=== PATIENT | male | born 1955 ===

== ENCOUNTER 2016-10-26 18:12 | Emergency (ER) | payer SELFPAY ==
[2016-10-26 18:21] VITALS: RESP 16
--- NOTE | 2016-10-26 18:54 | ED PDOC ---
Lower Extremity Pain/Injury Time Seen by Provider: 10/26/16 18:40 Chief Complaint (Nursing): Lower Extremity Problem/Injury History Per: Patient History/Exam Limitations: no limitations Onset/Duration Of Symptoms: Days (14) Current Symptoms Are (Timing): Still Present Additional Complaint(s): 61 year old male with PMH of DM presents to ED for evaluation of right foot swelling for few days and gradually worsening. Patient reports having mild pain 3/10 to foot and open wounds to the foot for about 3 weeks. He was seen by his dimension mill worker Dr Arjun Rascon and given antibiotics. He completed 10 day course of Keflex 500mg. Denies fever, drainage, SOB. Patient is visiting from [place]. Past Medical History Reviewed: Historical Data, Nursing Documentation, Vital Signs Vital Signs: Last Vital Signs Temp 98.1 F 10/26/16 18:15 Pulse 97 H 10/26/16 18:15 Resp 16 10/26/16 18:15 BP 143/89 10/26/16 18:15 Pulse Ox 100 10/26/16 18:15 - Medical History PMH: Diabetes - Family History Family History: States: Unknown Family Hx - Allergies Allergies/Adverse Reactions: Allergies Allergy/AdvReac Type Severity Reaction Status Date / Time No Known Allergies Allergy Verified 10/26/16 18:15 Review of Systems Constitutional: Negative for: Fever, Weakness, Malaise Cardiovascular: Negative for: Chest Pain, Palpitations Respiratory: Negative for: Cough, Shortness of Breath Gastrointestinal: Negative for: Abdominal Pain Musculoskeletal: Positive for: Foot Pain Skin: Positive for: Other (ulcer to foot) Neurological: Negative for: Headache, Dizziness Physical Exam - Reviewed Nursing Documentation Reviewed: Yes Vital Signs Reviewed: Yes - Physical Exam Appears: Positive for: Non-toxic, No Acute Distress Head Exam: Positive for: ATRAUMATIC, NORMAL INSPECTION, NORMOCEPHALIC Skin: Positive for: Warm, Dry. Negative for: Pallor Eye Exam: Positive for: Normal appearance Neck: Positive for: Painless ROM Cardiovascular/Chest: Positive for: Regular Rate, Rhythm Respiratory: Positive for: Normal Breath Sounds. Negative for: Wheezing, Respiratory Distress Gastrointestinal/Abdominal: Positive for: Soft, Other (obese) Extremity: Positive for: Normal ROM, Other (Moderate swelling and erythema to right foot extending right above ankle. Right foot with second digit amputation. 2 superficial ulcers to plantar foot near great toe, no discharge or foul odor. ) Neurologic/Psych: Positive for: Alert, Oriented - Laboratory Results Result Diagrams: 10/26/16 19:06 10/26/16 19:06 - ECG O2 Sat by Pulse Oximetry: 100 (room air) Pulse Ox Interpretation: Normal Medical Decision Making Medical Decision Making: Impression: Foot pain and ulcers Prior records reviewed: none available for review Plan: * Labs * foot xray * venous doppler * podiatry consult Progress: 1852 Page and speak with podiatry resident who come to evaluate patient 1947 Podiatry resident Dana Yang at bedside to evaluate patient, requesting xrays 1958 Venous doppler negative for DVT. XRay reviewed by me showing no degenerative disease, no signs of osteomyelitis. Disposition - Clinical Impression Clinical Impression: Diabetic foot ulcer Counseled Patient/Family Regarding: Diagnosis, Need For Followup - Disposition Disposition: Routine/Home Disposition Time: 20:00 Condition: STABLE Forms: [employer] (Swedish) Patient Signed Over To: Neva Villanueva Handoff Comments: pending xray, podiatry consult and dispo - POA Present On Arrival: Poor Glycemic Control
[2016-10-26 19:13] LABS: BASO # 0.1 K/uL (0.0-0.2); BASO % 0.7 % (0.0-2.0); EOS # 0.4 K/uL (0.0-0.7); EOS % 4.4 % (0.0-4.0); HEMATOCRIT 35.4 % (35.0-51.0); LYMPH # 1.9 K/uL (1.0-4.3); LYMPH % 20.7 % (20.0-40.0); MEAN CELL VOLUME 86.7 fl (80.0-94.0); MEAN CORPUSCULAR HEMOGLOBIN 28.5 pg (27.0-31.0); MEAN CORPUSCULAR HGB CONC 32.9 g/dL (33.0-37.0); MEAN PLATELET VOLUME 8.9 fl (7.2-11.7); MONO # 0.9 K/uL (0.0-0.8); MONO % 10.1 % (0.0-10.0); NEUT # 5.9 K/uL (1.8-7.0); NEUT % 64.1 % (50.0-75.0); NRBC % 0.1 % (0.0-0.0); RED CELL DISTRIBUTION WIDTH 13.7 % (11.5-14.5); WHITE BLOOD COUNT 9.2 K/uL (4.8-10.8)
[2016-10-26 19:27] LABS: ALB/GLOB RATIO 1.1 (1.0-2.1); ALKALINE PHOSPHATASE 83 U/L (38-126); ALT/SGPT 27 U/L (21-72); AST/SGOT 23 U/L (17-59); BILIRUBIN,TOTAL 0.5 mg/dl (0.2-1.3); BLOOD UREA NITROGEN 13 mg/dl (9-20); CALCIUM 9.4 mg/dL (8.4-10.2); CARBON DIOXIDE 28 mmol/L (22-30); CHLORIDE 102 mmol/L (98-107); GFR AFRICAN-AMERICAN > 60; GLUCOSE,RANDOM 134 mg/dL (75-110); POTASSIUM 4.4 MMOL/L (3.6-5.0); SODIUM 140 mmol/l (132-148); TOTAL PROTEIN 7.9 G/DL (6.3-8.2)
[2016-10-26] MEDS ORDERED: Sodium Chloride 0.9% 1,000 ML IV STA (19:33)
--- NOTE | 2016-10-26 19:55 | CP.PCM.CON ---
History of Present Illness - History of Present Illness History of Present Illness: 61 y/o male with PMHx of diabetes type II seen in the ED by podiatry for right foot swelling with minor pain. Patient has had 3 small ulcers on his foot present for approx 3 months duration and follows up regularly with a fiction and nonfiction writer prose Dr. Rascon near his home in [place]. 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 Patient recently completed a 10 day course of Keflex four days ago but has not seen any improvements in his leg or foot swelling. Patient admits to intermittent shooting pains to the foot which he has had for several months. Patient denies tingling, burning or numbness, but admits to a history of this in his feet. Patient denies F/C/N/V/SOB. Review of Systems - Review of Systems All systems: reviewed and no additional remarkable complaints except (per HPI) Past Patient History - Past Social History Smoking Status: Never Smoked - ENDOCRINE/METABOLIC Hx Diabetes Mellitus Type 2: Yes - PSYCHIATRIC Hx Substance Use: No - SURGICAL HISTORY Hx Amputation: Yes (right 2nd toe last year) Meds Home Medications: Home Medication List Medication Instructions Recorded Confirmed Type Amoxicillin/Clavulanate [Augmentin 1 tab PO Q12 #13 tab 10/26/16 Rx 875 MG-125 MG] Allergies/Adverse Reactions: Allergies Allergy/AdvReac Type Severity Reaction Status Date / Time No Known Allergies Allergy Verified 10/26/16 18:15 - Medications Medications: Current Medications Sodium Chloride (Sodium Chloride 0.9%) 1,000 mls @ 1,000 mls/hr IV .Q1H STA Stop: 10/26/16 20:32 Last Admin: 10/26/16 19:46 Dose: 1,000 mls/hr Physical Exam - Constitutional Appears: Well, Non-toxic, No Acute Distress - Extremities Exam Additional comments: Vasc: DP/PT pulses 2/4 B/L. Temperature gradient warm to cool B/L. +2 pitting edema noted to perimalleolar region and dorsum of foot on R, no edema noted to LLE. CFT < 3 sec to all digits. Derm: Superficial ulcerations with fibrogranular bases noted to medial aspect of R hallux, sub met head 3 and sub met shaft 5. R medial hallux ulcer measures 0.5cm x 0.5cm x 0.1cm. Sub met 3 ulcer measures 0.6cm x 0.6cm x 0.1cm. Sub met shaft 5 ulcer measures 1.4cm x 0.9cm x 0.1cm. All three ulcerations contain hyperkeratotic borders with stable fibrogranular bases. No drainage, no malodor , no surrounding erythema, no cellulitic changes, no tunneling, no probe to bone. Neuro: Protective sensation grossly diminished on R, grossly intact on L Ortho: No pain on palpation of R foot at ulceration sites - Neurological Exam Neurological exam: Alert, Oriented x3 - Psychiatric Exam Psychiatric exam: Normal Affect, Normal Mood Results - Vital Signs Recent Vital Signs: Last Vital Signs Temp 98.1 F 10/26/16 18:15 Pulse 97 H 10/26/16 18:15 Resp 16 10/26/16 18:15 BP 143/89 10/26/16 18:15 Pulse Ox 100 10/26/16 19:50 - Labs Result Diagrams: 10/26/16 19:06 10/26/16 19:06 Labs: Laboratory Results - last 24 hr 10/26/16 10/26/16 19:06 19:06 WBC 9.2 RBC 4.08 L Hgb 11.7 L Hct 35.4 MCV 86.7 MCH 28.5 MCHC 32.9 L RDW 13.7 Plt Count 287 MPV 8.9 Neut % (Auto) 64.1 Lymph % (Auto) 20.7 Morrison % (Auto) 10.1 H Eos % (Auto) 4.4 H Baso % (Auto) 0.7 Neut # 5.9 Lymph # 1.9 Morrison # 0.9 H Eos # 0.4 Baso # 0.1 Sodium 140 Potassium 4.4 Chloride 102 Carbon Dioxide 28 Anion Gap 14 BUN 13 Creatinine 1.0 Est GFR ( Amer) > 60 Est GFR (Non-Af Amer) > 60 Random Glucose 134 H Calcium 9.4 Total Bilirubin 0.5 AST 23 ALT 27 Alkaline Phosphatase 83 Total Protein 7.9 Albumin 4.2 Globulin 3.7 Albumin/Globulin Ratio 1.1 Assessment & Plan - Assessment and Plan (Free Text) Assessment: 61 y/o male with superficial ulcerations to R foot with RLE edema secondary to DM with neuropathy Plan: Pt seen in ED by podiatry Discussed plan in detail with attending Dr. Saucedo Chart, labs and vitals reviewed - afebrile WBC 9.2 X-rays of R foot reveal no erosive changes, no cortical disruption, hx of amputations to R 2nd digit and 5th metatarsal head Aseptic excisional debridement of superficial ulcerations on R medial hallux, R sub met 3 and R sub met shaft 5 with sterile #10 blade down to subcutaneous tissue with removal of hyperkeratotic tissue and activation of healthy bleeding tissue Pt tolerated procedure without incident Applied Betadine and DSD to R foot Pt dispensed Augmentin x7d by ED Pt recommended to follow up within one week with his fiction and nonfiction writer prose once he returns home to [place] Pt recommended to monitor foot for signs of infection such as redness to the foot or drainage from his wounds Thank you for this consult
--- NOTE | 2016-10-26 19:55 | US ---
EXAM: US Duplex Right Lower Extremity Veins EXAM DATE/TIME: 10/26/2016 6:50 PM CLINICAL HISTORY: 61 years old, male; Pain; Leg, lower; Right; Additional info: Swelling redness pain to foot and calf TECHNIQUE: Real-time ultrasound scan of the veins of the right lower extremity with color Doppler flow, spectral waveform analysis and compression. COMPARISON: There are no prior studies for comparison. FINDINGS: Deep veins: Common femoral, superficial femoral, popliteal and posterior tibial veins were evaluated. All veins examined are compressible. There are no intraluminal filling defects. There is expected blood flow on Doppler imaging. There is change in waveform with augmentation. Soft tissues: There is edema at the right ankle IMPRESSION: No deep venous thrombosis in the visualized vascular segments of the lower extremity
[2016-10-26] MEDS ORDERED: Povidone Iodine Oint 10% Foilpak UD ONE (20:12)
--- NOTE | 2016-10-26 20:14 | ED PDOC ---
- Laboratory Results Result Diagrams: 10/26/16 19:06 10/26/16 19:06 - ECG O2 Sat by Pulse Oximetry: 100 (room air) - Progress ED Course And Treament: case endorsed to technical proposal writer from [facility] pending podiatry consult Patient evaluated by podiatry resident on-call (see consult note) Recommends Augmentin and follow up with clinical nursing manager upon returning to [place]. Disposition - Clinical Impression Clinical Impression: Diabetic foot ulcer - POA Present On Arrival: None - Disposition Disposition: Routine/Home Disposition Time: 21:05 Condition: STABLE Additional Instructions: Follow up with you Handle Sander Operator upon returning home. Take medication as directed. Return to ED for worsening/concerning symptoms. Prescriptions: Amoxicillin/Clavulanate [Augmentin 875 MG-125 MG] 1 tab PO Q12 #13 tab Instructions: Diabetic Foot Care (ED), Diabetic Foot Ulcers (ED)
[2016-10-26] MEDS ORDERED: Amoxicillin-Clav 875-125 mg Tab PO STA (20:15)
[2016-10-26] MEDS ORDERED: Amoxicillin-Clav 875-125 mg Tab PO ONE (21:30)
[2016-10-26 21:40] VITALS: BP 133/69; PULSE 79; TEMP 97.9; O2SAT 99
--- NOTE | 2016-10-27 10:50 | RAD ---
PROCEDURE: Right Foot Radiographs. HISTORY: swelling, pain, ulcers COMPARISON: None. FINDINGS: BONES: Prior amputation of the 2nd digit appreciated with a deform the distal portion of the 2nd metatarsal bone. Prior amputation of the distal 5th metatarsal bone is also appreciated. Vascular calcifications is are appreciated throughout the foot soft tissues dorsally as well as at the plantar regions with prominent soft tissue edema is seen at the forefoot and midfoot dorsally and at the plantar distribution. Anterior ankle soft tissue edema is suggested as well. No definitive suspicious focal lytic or blastic change. MRI should be considered if there is concern for osteomyelitis. JOINTS: Degenerate joint changes seen throughout the it remaining interphalangeal joints diffusely as well as the 1st metatarsophalangeal joint and midfoot joints. SOFT TISSUES: As above. No emphysematous soft tissue changes noted however. OTHER FINDINGS: None. IMPRESSION: Predominately forefoot and midfoot soft tissue edema is appreciate well as anterior to the ankle. Prior amputation 2nd digit and distal portion right 5th metatarsal bone noted. No focal lytic or blastic change. Osteomyelitis is quite as clinically suspected then follow-up MRI is advised. Degenerate changes as per above.
== END 2016-10-26 21:52 | disposition home or self-care (01) ==
LOC: H.ER 18:12
DX: E11.621 Type 2 diabetes mellitus with foot ulcer (principal)
CPT/HCPCS: 73630; 80053; 85025; 93971; 96360; 99284; J7040

== ENCOUNTER 2016-11-19 13:46 | Emergency (ER) | payer SELFPAY ==
[2016-11-19 13:52] VITALS: BP 164/83; PULSE 86; RESP 18; TEMP 98.2; O2SAT 100
[2016-11-19 14:26] LABS: BASO # 0.1 K/uL (0.0-0.2); BASO % 0.8 % (0.0-2.0); EOS # 0.2 K/uL (0.0-0.7); EOS % 3.4 % (0.0-4.0); HEMATOCRIT 34.4 % (35.0-51.0); LYMPH # 1.9 K/uL (1.0-4.3); LYMPH % 26.5 % (20.0-40.0); MEAN CELL VOLUME 85.6 fl (80.0-94.0); MEAN CORPUSCULAR HEMOGLOBIN 28.6 pg (27.0-31.0); MEAN CORPUSCULAR HGB CONC 33.4 g/dL (33.0-37.0); MEAN PLATELET VOLUME 8.8 fl (7.2-11.7); MONO # 0.9 K/uL (0.0-0.8); MONO % 12.1 % (0.0-10.0); NEUT # 4.2 K/uL (1.8-7.0); NEUT % 57.2 % (50.0-75.0); NRBC % 0.1 % (0.0-0.0); RED CELL DISTRIBUTION WIDTH 13.7 % (11.5-14.5); WHITE BLOOD COUNT 7.3 K/uL (4.8-10.8)
[2016-11-19 14:31] LABS: VENOUS BLOOD GAS BASE EXCESS 4.2 mmol/L (0.0-2.0); VENOUS BLOOD GAS PCO2 40 mmHg (40-60); VENOUS BLOOD PH 7.46 (7.32-7.43)
[2016-11-19 14:35] LABS: BLOOD UREA NITROGEN 24 mg/dl (9-20); CALCIUM 9.2 mg/dL (8.4-10.2); CARBON DIOXIDE 24 mmol/L (22-30); CHLORIDE 105 mmol/L (98-107); GFR AFRICAN-AMERICAN > 60; GLUCOSE,RANDOM 168 mg/dL (75-110); POTASSIUM 4.9 MMOL/L (3.6-5.0); SODIUM 143 mmol/l (132-148)
--- NOTE | 2016-11-19 16:13 | ED PDOC ---
Lower Extremity Pain/Injury Time Seen by Provider: 11/19/16 14:00 Chief Complaint (Nursing): Lower Extremity Problem/Injury Chief Complaint (Provider): foot pain History Per: Patient (61 y/o male h/o DM here with slowly worsening ulcers of right foot notes moderate pain today. Denies any fevers/chills. Has a primary finance broker in [place] who he last followed with 2 weeks ago for debridement. Recently finished antibiotics.) Past Medical History Reviewed: Historical Data, Nursing Documentation, Vital Signs Vital Signs: Last Vital Signs Temp 98.2 F 11/19/16 13:47 Pulse 86 11/19/16 13:47 Resp 18 11/19/16 13:47 BP 164/83 H 11/19/16 13:47 Pulse Ox 100 11/19/16 13:47 - Medical History PMH: Diabetes, HTN - Family History Family History: States: Unknown Family Hx - Home Medications Home Medications: Ambulatory Orders Medication Instructions Recorded Amoxicillin/Clavulanate [Augmentin 1 tab PO Q12 #13 tab 10/26/16 875 MG-125 MG] Cephalexin [Keflex] 500 mg PO QID #28 capsule 11/19/16 - Allergies Allergies/Adverse Reactions: Allergies Allergy/AdvReac Type Severity Reaction Status Date / Time No Known Allergies Allergy Verified 10/26/16 18:15 Review of Systems ROS Statement: Except As Marked, All Systems Reviewed And Found Negative Musculoskeletal: Positive for: Foot Pain Physical Exam - Reviewed Nursing Documentation Reviewed: Yes Vital Signs Reviewed: Yes - Physical Exam Appears: Positive for: Well, Non-toxic, No Acute Distress Head Exam: Positive for: ATRAUMATIC, NORMAL INSPECTION, NORMOCEPHALIC Skin: Positive for: Normal Color, Warm, DRY Eye Exam: Positive for: EOMI, Normal appearance, PERRL ENT: Positive for: Normal ENT Inspection Neck: Positive for: Normal, Painless ROM Cardiovascular/Chest: Positive for: Regular Rate, Rhythm Respiratory: Positive for: CNT, Normal Breath Sounds Gastrointestinal/Abdominal: Positive for: Normal Exam, Bowel Sounds, Soft Back: Positive for: Normal Inspection Extremity: Positive for: Normal ROM, Other (three foot ulcers noted plantar surface of right foot, largest 1.5 cm. no surrounding erythema) Neurologic/Psych: Positive for: Alert, Oriented - Laboratory Results Result Diagrams: 11/19/16 14:20 11/19/16 14:20 - ECG O2 Sat by Pulse Oximetry: 100 - Progress ED Course And Treament: xry of foot: no obvious osteomyelitis Seen by podiatry resident recommends keflex rx and f/u with private finance broker within 1 week Disposition - Clinical Impression Clinical Impression: Wound, open, foot - Patient ED Disposition Is Patient to be Admitted: No - Disposition Referrals: Podiatry Clinic [Outside] Disposition: Routine/Home Disposition Time: 16:15 Condition: FAIR Prescriptions: Cephalexin [Keflex] 500 mg PO QID #28 capsule Instructions: Acute Wound Care (ED) Forms: [employer] (Azeri)
--- NOTE | 2016-11-19 17:03 | RAD ---
PROCEDURE: Right Foot Radiographs. HISTORY: foot wound COMPARISON: Right foot radiographs 10/26/2016. FINDINGS: BONES: No acute fracture dislocation a prior amputation of the 2nd disease appreciate as well as ostectomy of the distal 5th metatarsal bone. Vascular calcification identified in the soft tissues and degenerate changes are seen throughout the joints of the right foot diffusely. No obvious focal bone lysis or periosteal reaction to suggest osteomyelitis overly. MRI is recommended if there is clinical concern for osteomyelitis, nevertheless. JOINTS: As above. SOFT TISSUES: As above. OTHER FINDINGS: None. IMPRESSION: Prior right 2nd digit amputation and ostectomy of the distal segment of the 5th metatarsal bone. No overt radiographic sign to suggest osteomyelitis however if osteomyelitis is clinically suspected then follow-up MRI is advised.
--- NOTE | 2016-11-19 17:29 | CP.PCM.CON ---
History of Present Illness - History of Present Illness History of Present Illness: 61 year old male seen in ED for painful diabetic ulcerations to plantar aspect of right foot. 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 He states that his is up visiting his girlfriend for the week but lives in [place] where he sees a manager custom regularly. He states that after walking on his wounds yesterday he has experienced increased pain to his right foot today prompting him to come into the ED. Patient states that he has not noticed , drainage, erythema, or malodor coming from the ulceration sites. He say that he will be seeing his manager custom next week when he returns to [place]. Patient states that he has a CAM walker at home that he wears regularly that he did not wear yesterday. Patient denies any further pedal complaints at this time. Patient denies any recent N/V/F/C/CP/SOB Review of Systems - Review of Systems Review of Systems: ROS unremarkable outside of HPI Past Patient History - Past Social History Smoking Status: Never Smoked - CARDIAC Hx Hypertension: Yes - ENDOCRINE/METABOLIC Hx Diabetes Mellitus Type 2: Yes - PSYCHIATRIC Hx Substance Use: No - SURGICAL HISTORY Hx Amputation: Yes (right 2nd toe last year) Meds Home Medications: Home Medication List Medication Instructions Recorded Confirmed Type Cephalexin [Keflex] 500 mg PO QID #28 capsule 11/19/16 Rx Allergies/Adverse Reactions: Allergies Allergy/AdvReac Type Severity Reaction Status Date / Time No Known Allergies Allergy Verified 10/26/16 18:15 Physical Exam - Constitutional Appears: Well, Non-toxic, No Acute Distress - Extremities Exam Additional comments: RLE focused exam Vasc: DP/PT pulses diminished b/l. CFT < 3 seconds. Skin temperatuer warm to warm from proximal to distal. No edema noted to right foot Neuro: Epicritic and protective sensation grossly diminished b/l\ Derm: Three ulcerations noted to plantar aspect of right foot at lateral forefoot and at hallux. No malodor, erythema, drainage or other clinical signs of infection. PRobe to bone test negative. No other open lesions, wounds, maceration, xerosis, abnormal pigmenation or abnormal growth noted at this time. MSK: POP to ulceration sites - Neurological Exam Neurological exam: Alert, Oriented x3 - Psychiatric Exam Psychiatric exam: Normal Affect, Normal Mood Results - Vital Signs Recent Vital Signs: Last Vital Signs Temp 98.2 F 11/19/16 13:47 Pulse 86 11/19/16 13:47 Resp 18 11/19/16 13:47 BP 164/83 H 11/19/16 13:47 Pulse Ox 100 11/19/16 16:17 - Labs Result Diagrams: 11/19/16 14:20 11/19/16 14:20 Labs: Laboratory Results - last 24 hr 11/19/16 11/19/16 11/19/16 14:20 14:20 14:21 WBC 7.3 RBC 4.01 L Hgb 11.5 L Hct 34.4 L MCV 85.6 MCH 28.6 MCHC 33.4 RDW 13.7 Plt Count 293 MPV 8.8 Neut % (Auto) 57.2 Lymph % (Auto) 26.5 Posey % (Auto) 12.1 H Eos % (Auto) 3.4 Baso % (Auto) 0.8 Neut # 4.2 Lymph # 1.9 Posey # 0.9 H Eos # 0.2 Baso # 0.1 pO2 34 VBG pH 7.46 H VBG pCO2 40 VBG HCO3 27.5 VBG Total CO2 29.6 H VBG O2 Sat (Calc) 72.6 H VBG Base Excess 4.2 H Glucose 170 H Lactate 1.5 FiO2 21.0 Crit Value Called To barbara Joe md Crit Value Called By 302 Crit Value Read Back Y Blood Gas Notified Time 1430 Sodium 143 178.0 H* Potassium 4.9 Chloride 105 123.0 H Carbon Dioxide 24 Anion Gap 18 BUN 24 H Creatinine 0.9 Est GFR ( Amer) > 60 Est GFR (Non-Af Amer) > 60 Random Glucose 168 H Calcium 9.2 Assessment & Plan - Assessment and Plan (Free Text) Assessment: 61 year old male with diabetic ulcerations plantar right foot Plan: Patient seen and evaluated in ED Charts, labs and vitals reviewed: afebrile, WBC 7.3, glucose [address] Pope Patients foot dressed with Bacitracin ointment, gauze, DSD Xray reviewed: No signs of fracture or OM at this time Patient advised to weight bear at all times in his CAM walker Advised to f/u with regular manager custom upon returning home Rx: Keflex 500 for one week while he remains with his girlfriend - Date & Time Date: 11/19/16 Time: 16:00
== END 2016-11-19 16:26 | disposition home or self-care (01) ==
LOC: H.ER 13:46
DX: S91.301A Unspecified open wound, right foot, initial encounter (principal); X58.XXXA Exposure to other specified factors, initial encounter; E11.9 Type 2 diabetes mellitus without complications